=== PATIENT | female | born 1975 | race Two or more races ===

== ENCOUNTER 2016-10-13 00:30 | Emergency (ER) | payer MEDICAID ==
[2016-10-13 00:34] VITALS: BP 146/92; PULSE 100; RESP 16; TEMP 98.2; O2SAT 99
[2016-10-13] MEDS ORDERED: ZANT300T PO (00:47)
[2016-10-13] MEDS ORDERED: BUTA1CAP PO (00:47)
[2016-10-13] MEDS ORDERED: DIPH25CA PO ×2 (00:47→03:42)
[2016-10-13] MEDS ORDERED: AMIT150T PO (00:47)
[2016-10-13] MEDS ORDERED: SODIUM CHLOR 0.9% 1000 ML INJ 1,000 ML IV ONE (01:47)
[2016-10-13 01:48] LABS: BACTERIA, URINE RARE /hpf; BLOOD, URINE NEG (NEG); COMMENT (UR) CULT NOT INDICATED; CULTURE IF INDICATED CULT NOT INDICATED; GLUCOSE,URINE NEG (NEG); KETONE, URINE NEG (NEG); MUCUS URINE FEW /lpf (OCC); NITRITE,URINE NEG (NEG); PH, URINE 6.5 (5.0-8.5); SQUAMOUS EPITHELIAL CELL URINE 8 /hpf (0-5); URINE COLOR YELLOW (YELLW/STRAW)
[2016-10-13] MEDS ORDERED: KETOROLAC TROMETHAMINE 30 MG/ML (IVP) VIAL IVP ONE (02:00)
[2016-10-13] MEDS ORDERED: DEXAMETHASONE SOD PHOS 20 MG/5 ML VIAL IV PUSH ONE (02:00)
[2016-10-13] MEDS ORDERED: SODIUM CHLORIDE 0.9% FLUSH 10 ML FLUSH IVF PRN (02:00)
[2016-10-13] MEDS ORDERED: diphenhydrAMINE HCL 50 MG/ML VIAL IVP ONE (02:00)
[2016-10-13] MEDS ORDERED: METOCLOPRAMIDE HCL 10 MG/2 ML VIAL IVP ONE (02:00)
--- NOTE | 2016-10-13 02:11 | PD ---
HPI Chief Complaint: Cell Builder Problem/Complaint Time Seen by Provider: 01:22 Travel History International Travel<30 days: No Contact w/Intl Traveler<30days: No Traveled to known affect area: No History of Present Illness HPI Patient is a 41-year-old female who presents to emergency room with complaints of rash. Yesterday, she broke out in a diffuse rash all over her body. Patient denies any new lotions or detergents or perfumes, reports that she uses Dove to clean her body and uses unscented laundry detergents to clean her clothing. Patient reports that she can't seem to stop scratching her body. Patient reports that this has never happened the past, denies any allergies to food products. Reports no new body lotions/creams. Patient with no airway involvement - denies chest pain/sob. Patient also reports history of migraines , except that she takes Fioricet for her migraine symptoms, reports that she began to have a typical migraine this morning, reports that she still feels a pressure to the front of her head. Patient denies any fevers or chills, denies any neck pain, reports that her symptoms today are similar to her previous episodes of migraine headaches. She does see a neurologist in [place] where she is from, reports that she has not established care while in [place] yet. PFSH Past Medical History Depression: Yes Diminished Hearing: No GERD: Yes Headaches: Yes Tetanus Vaccination: Unknown ?: Not Past Surgical History Cholecystectomy: Yes Hysterectomy: Yes Social History Alcohol Use: No Tobacco Use: No Substance Use: No Allergies-Medications (Allergen,Severity, Reaction): Coded Allergies: No Known Allergies (Unverified , 10/13/16) Reported Meds & Prescriptions Reported Meds & Active Scripts Active Reported Diphenhydramine (Diphenhydramine HCl) 25 Mg Cap 100 Mg PO ONCE Amitriptyline (Amitriptyline HCl) 150 Mg Tab 150 Mg PO HS Zantac (Ranitidine HCl) 300 Mg Tab 300 Mg PO DAILY Fioricet (Jxlzfkqabr-Gziokesrlptdz-Dixcvzdg) 50-300-40 Mg Cap 1 Cap PO Q4H PRN Review of Systems General / Constitutional: No: Fever, Chills Eyes: No: Visual changes HENT: No: Headaches, Nosebleed, Neck Stiffness, Neck Pain Cardiovascular: No: Chest Pain or Discomfort Respiratory: No: Shortness of Breath Gastrointestinal: No: Abdominal Pain Genitourinary: No: Dysuria Musculoskeletal: No: Pain Skin: Positive Rash, Positive Itching, Positive Hives Neurologic: No: Weakness Psychiatric: No: Depression Endocrine: No: Polydipsia Hematologic/Lymphatic: No: Easy Bruising Physical Exam Narrative GENERAL: No acute distress, nontoxic SKIN: Focused skin assessment warm/dry. Patient with diffuse hives throughout her trunk and abdomen, no hives on extremities or back HEAD: Atraumatic. Normocephalic. EYES: Pupils equal and round. No scleral icterus. No injection or drainage. ENT: No nasal bleeding or discharge. Mucous membranes pink and moist. Airways are open and patent with no signs of swelling NECK: Trachea midline. No JVD. No meningeal signs, negative Kernig and Babinski sign. CARDIOVASCULAR: Regular rate and rhythm. No murmur appreciated. RESPIRATORY: No accessory muscle use. Clear to auscultation. Breath sounds equal bilaterally. GASTROINTESTINAL: Abdomen soft, non-tender, nondistended. Hepatic and splenic margins not palpable. MUSCULOSKELETAL: No obvious deformities. No clubbing. No cyanosis. No edema. NEUROLOGICAL: Awake and alert. No obvious cranial nerve deficits. Motor grossly within normal limits. Normal speech. Cranial nerves II-12 grossly intact with no neurological deficits. PSYCHIATRIC: Appropriate mood and affect; insight and judgment normal. Data Data Last Documented VS Vital Signs Date Time Temp Pulse Resp B/P (MAP) Pulse Ox O2 Delivery O2 Flow Rate FiO2 10/13/16 00:34 98.2 100 16 146/92 (110) 99 Orders Orders Urinalysis - C+S If Indicated (10/13/16 01:09) Ed Urine Pregnancytest Poc (10/13/16 01:09) Iv Access Insert/Monitor (10/13/16 01:47) Sodium Chloride 0.9% Flush (Ns Flush) (10/13/16 02:00) Ketorolac Inj (Toradol Inj) (10/13/16 02:00) Diphenhydramine Inj (Benadryl Inj) (10/13/16 02:00) Metoclopramide Inj (Reglan Inj) (10/13/16 02:00) Sodium Chlor 0.9% 1000 Ml Inj (Ns 1000 M (10/13/16 01:47) Dexamethasone Inj (Decadron Inj) (10/13/16 02:00) Labs Laboratory Tests Test 10/13/16 01:30 Urine Color YELLOW Urine Turbidity HAZY Urine pH 6.5 Urine Specific [place] 1.027 Urine Protein TRACE mg/dL Urine Glucose (UA) NEG mg/dL Urine Ketones NEG mg/dL Urine Occult Blood NEG Urine Nitrite NEG Urine Bilirubin NEG Urine Urobilinogen LESS THAN 2.0 MG/DL Urine Leukocyte Esterase SMALL Urine RBC 2 /hpf Urine WBC 4 /hpf Urine Squamous Epithelial Cells 8 /hpf Urine Bacteria RARE /hpf Urine Mucus FEW /lpf Microscopic Urinalysis Comment CULT NOT INDICATED MDM Medical Decision Making Medical Screen Exam Complete: Yes Emergency Medical Condition: Yes Interpretation(s) Vital Signs Date Time Temp Pulse Resp B/P (MAP) Pulse Ox O2 Delivery O2 Flow Rate FiO2 10/13/16 00:34 98.2 100 16 146/92 (110) 99 Differential Diagnosis Differential includes allergic reaction, migraine headache, ich though unlikely Narrative Course Patient is a 41-year-old female who presents to emergency with multiple complaints. Patient reports that she broke out in hives yesterday, patient reports that her scan is pruritic in nature, reports that she did take benadryl with no relief of symptoms. On evaluation, patient has diffuse hives to her trunk of her body as well as her abdomen. Patient with no airway involvement. Plan to administer Benadryl, steroids, Pepcid. Patient will need to follow-up with an gis software engineer to find out exactly what she is allergic to. Patient also with migraine headache, will give a dose of Toradol as patient reports typical migraine headache at this time. Patient with no neurological deficits, reports that she is being worked up for migraine headache. Will continue to monitor patient in the emergency room. Patient re-evaluated. Patient with near resolution of her symptoms. Reports that her migraine has resolved and pruritus has decreased. She will follow up with an gis software engineer as well as neurologist as outpatient. She will return to ER as needed. Patient thankful for care Diagnosis Primary Impression: Cephalgia Qualified Codes: R51 - Headache Additional Impression: Contact dermatitis Qualified Codes: L25.9 - Unspecified contact dermatitis, unspecified cause Patient Instructions: General Instructions Additional Instructions: Please follow up with your primary care doctor Please follow up with an gis software engineer for an allergy panel Take all medications as prescribed Return to ER if symptoms worsen or persist Return to ER as needed Med/Other Pt SpecificInfo: Prescription(s) given Scripts Famotidine (Pepcid) 20 Mg Tab 20 MG PO BID for 5 Days, #60 TAB 0 Refills Prov: Nikia Dukes DO 10/13/16 Diphenhydramine (Diphenhydramine) 25 Mg Cap 25 MG PO Q6H Y for ALLERGIES for 7 Days, CAP 0 Refills Prov: Nikia Dukes DO 10/13/16 Prednisone (Prednisone) 20 Mg Tab 20 MG PO BID for 5 Days, TAB 0 Refills Prov: Nikia Dukes DO 10/13/16 Disposition: 01 DISCHARGE HOME Condition: Stable Nikia Dukes DO Oct 13, 2016 02:11
[2016-10-13] MEDS ORDERED: FAMO1TAB37 PO (03:42)
[2016-10-13] MEDS ORDERED: PRED20 PO (03:42)
== END 2016-10-13 04:36 | disposition home or self-care (01) ==
LOC: NEPE 00:30
DX: L25.9 Unspecified contact dermatitis, unspecified cause (principal); R51 Headache
CPT/HCPCS: 81001; 84703; 96374; 96375; 99284; J1100; J1200; J1885; J2765; J7030

== ENCOUNTER 2017-01-02 00:48 | Emergency (ER) | payer MEDICAID ==
[~2017-01-02] VITALS: Ht 152.4 cm; Wt 66.0 kg
[~2017-01-02 00:48] MED LIST: AMIT150T PO; BUTA1CAP PO; DIPH25CA PO; FAMO1TAB37 PO; PRED20 PO; ZANT300T PO
[2017-01-02 00:50] VITALS: BP 165/85; PULSE 107; RESP 16; TEMP 98.5; O2SAT 100
[2017-01-02] MEDS ORDERED: KETOROLAC TROMETHAMINE 30 MG/ML (IVP) VIAL IV PUSH ONE (01:30)
[2017-01-02] MEDS ORDERED: methylPREDNISolone SOD SUCC 125 MG/2 ML VIAL IV PUSH ONE (01:30)
[2017-01-02] MEDS ORDERED: ONDANSETRON HCL 4 MG/2 ML VIAL IV PUSH ONE (01:30)
[2017-01-02] MEDS ORDERED: diphenhydrAMINE HCL 50 MG/ML VIAL IV PUSH ONE (01:30)
[2017-01-02] MEDS ORDERED: PRED20 PO (01:40)
[2017-01-02] MEDS ORDERED: ZOFR4TAB3 SL (01:40)
[2017-01-02] MEDS ORDERED: ZANT300T PO (01:40)
[2017-01-02] MEDS ORDERED: ZYRTEC PO (01:40)
--- NOTE | 2017-01-02 01:40 | PD ---
HPI Chief Complaint: Headache Time Seen by Provider: 01:21 Travel History International Travel<30 days: No Contact w/Intl Traveler<30days: No Traveled to known affect area: No History of Present Illness HPI 41-year-old female complaining headache and itching rash. Patient states that she had itching rash the past 2 days. Patient does not know up exposure. Patient denies any problem with swallowing or shortness of breath. Patient has history of recurrent migraine headache. Patient states that headache started this morning. Patient states the headache is throbbing headache diffuse over the head. Patient denies any visual change. Patient complains of photophobia. Patient complains of nausea with the headache. Patient denies any neck pain. Patient denies any chest pain or shortness of breath. Patient denies abdominal pain. Patient denies any focal weakness or numbness of extremity. Patient states the headache; headache she had in the past. Patient denies any recent head injury. Patient denies any fever chills. Patient states that she took Fioricet without much relief of the headache. PFSH Past Medical History Depression: Yes Diminished Hearing: No GERD: Yes Headaches: Yes ?: Not LMP: N/A Past Surgical History Cholecystectomy: Yes Hysterectomy: Yes Social History Alcohol Use: Yes (RARE) Tobacco Use: No Substance Use: No Allergies-Medications (Allergen,Severity, Reaction): Coded Allergies: No Known Allergies (Unverified Adverse Reaction, Unknown, 01/02/17) Reported Meds & Prescriptions Reported Meds & Active Scripts Active Pepcid (Famotidine) 20 Mg Tab 20 Mg PO BID 5 Days Diphenhydramine (Diphenhydramine HCl) 25 Mg Cap 25 Mg PO Q6H PRN 7 Days Prednisone 20 Mg Tab 20 Mg PO BID 5 Days Reported Diphenhydramine (Diphenhydramine HCl) 25 Mg Cap 100 Mg PO ONCE Amitriptyline (Amitriptyline HCl) 150 Mg Tab 150 Mg PO HS Zantac (Ranitidine HCl) 300 Mg Tab 300 Mg PO DAILY Fioricet (Qacfmsvvsr-Zsqfliitjmnhs-Pvfpuimh) 50-300-40 Mg Cap 1 Cap PO Q4H PRN Review of Systems General / Constitutional: No: Fever Eyes: Positive: Photophobia, No: Visual changes HENT: Positive: Headaches Cardiovascular: No: Chest Pain or Discomfort Respiratory: No: Shortness of Breath Gastrointestinal: Positive: Nausea, No: Abdominal Pain Genitourinary: No: Dysuria Musculoskeletal: No: Pain Skin: Positive Rash, Positive Itching Neurologic: No: Weakness Psychiatric: No: Depression Endocrine: No: Polydipsia Hematologic/Lymphatic: No: Easy Bruising Physical Exam Narrative GENERAL: Well-nourished, well-developed patient. SKIN: Focused skin assessment warm/dry. Patient has hives over the face, trunk and extremity. HEAD: Normocephalic. EYES: No scleral icterus. No injection or drainage. Pupil 4 mm equal reactive. NECK: Supple, trachea midline. No JVD or lymphadenopathy. No meningismus CARDIOVASCULAR: Regular rate and rhythm without murmurs, gallops, or rubs. RESPIRATORY: Breath sounds equal bilaterally. No accessory muscle use. GASTROINTESTINAL: Abdomen soft, non-tender, nondistended. MUSCULOSKELETAL: No cyanosis, or edema. BACK: Nontender without obvious deformity. No CVA tenderness. Neurologic exam normal. Data Data Last Documented VS Vital Signs Date Time Temp Pulse Resp B/P (MAP) Pulse Ox O2 Delivery O2 Flow Rate FiO2 01/02/17 01:18 16 01/02/17 00:50 98.5 107 165/85 (111) 100 Room Air Orders Orders Iv Access Insert/Monitor (01/02/17 01:27) Ketorolac Inj (Toradol Inj) (01/02/17 01:30) Methylprednisolone So Succ Inj (Solumedr (01/02/17 01:30) Ondansetron Inj (Zofran Inj) (01/02/17 01:30) Diphenhydramine Inj (Benadryl Inj) (01/02/17 01:30) MDM Medical Decision Making Medical Screen Exam Complete: Yes Emergency Medical Condition: Yes Differential Diagnosis Differential diagnosis including allergic reaction, anaphylactic reaction, migraine headache, tension headache, cluster headache. Narrative Course 41-year-old female with itching rash and migraine headache. Toradol 30 mg IV. Benadryl 50 mg IV. Zofran 4 mg IV. Solu-Medrol 125 mg IV. Diagnosis Primary Impression: Cephalgia Qualified Codes: R51 - Headache Additional Impression: Allergic reaction Qualified Codes: T78.40XA - Allergy, unspecified, initial encounter Patient Instructions: General Instructions Additional Instructions: Continue with Fioricet as directed. Prednisone and Benadryl as directed. Follow-up with personal physician. Return if worse. Follow-up with clerical car checker or psychic reader for skin rash. Med/Other Pt SpecificInfo: Prescription(s) given Scripts Ondansetron Odt (Zofran Odt) 4 Mg Tab 4 MG SL Q6HR Y for Nausea/Vomiting, #10 TAB 0 Refills Prov: Qamar Burk MD 01/02/17 [[facility]] No Conflict Check 1 TAB PO DAILY, #14 Prov: Qamar Burk MD 01/02/17 Prednisone (Prednisone) 20 Mg Tab 20 MG PO BID, #10 TAB 0 Refills Prov: Qamar Burk MD 01/02/17 Ranitidine (Zantac) 300 Mg Tab 300 MG PO DAILY, #14 TAB 0 Refills Prov: Qamar Burk MD 01/02/17 Disposition: 01 DISCHARGE HOME Condition: Stable Qamar Burk MD Jan 02, 2017 01:40
== END 2017-01-02 04:34 | disposition home or self-care (01) ==
LOC: NEPE 00:48
DX: T78.40XA Allergy, unspecified, initial encounter (principal); R51 Headache; L29.9 Pruritus, unspecified; R21 Rash and other nonspecific skin eruption; F32.9 Major depressive disorder, single episode, unspecified; K21.9 Gastro-esophageal reflux disease without esophagitis; Z79.899 Other long term (current) drug therapy
CPT/HCPCS: 96374; 96375; 99284; J1200; J1885; J2405; J2930

== ENCOUNTER 2017-01-27 13:06 | Observation (INO) | payer MEDICAID ==
[~2017-01-27 13:06] MED LIST changes: +ZOFR4TAB3 SL; +ZYRTEC PO
[2017-01-27] MEDS ORDERED: IOHEXOL 350 MG/ML 10 ML VIAL (for RAD DIAG) IVCONTRAST ONE (13:07)
[2017-01-27 13:09] VITALS: BP 138/89; PULSE 133; RESP 22; TEMP 98.6; O2SAT 96
[2017-01-27] MEDS ORDERED: SODIUM CHLOR 0.9% 1000 ML INJ 1,000 ML IV SCH ×2 (13:14→13:30)
[2017-01-27] MEDS ORDERED: SODIUM CHLORIDE 0.9% FLUSH 10 ML FLUSH IV FLUSH PRN (13:15)
[2017-01-27 13:25] VITALS: RESP 18; O2SAT 98
[2017-01-27] MEDS ORDERED: FAMOTIDINE 20 MG/2 ML VIAL IV PUSH ONE (13:30)
[2017-01-27] MEDS ORDERED: LIDOCAINE VISCOUS 2% SOLN 15 ML UDC PO ONE (13:30)
[2017-01-27] MEDS ORDERED: ALUMINUM/MAGNESIUM/SIMETH 30 ML CUP PO ONE (13:30)
[2017-01-27] MEDS ORDERED: MORPHINE SULFATE 4 MG/ML INJ IV PUSH ONE ×2 (13:30→16:45)
[2017-01-27] MEDS ORDERED: ONDANSETRON HCL 4 MG/2 ML VIAL IVP ONE (13:30)
--- NOTE | 2017-01-27 13:39 | PD ---
HPI Chief Complaint: GI Complaint Time Seen by Provider: 13:14 Travel History International Travel<30 days: No Contact w/Intl Traveler<30days: No Traveled to known affect area: No History of Present Illness HPI Patient is a 41-year-old female with history of gastritis, cholecystectomy, hysterectomy, presents to emergency room with complaints of abdominal pain with nausea and vomiting for the past 2 days. Patient reports that for the past 2 days, she has been unable to eat or drink anything, reports pain to her upper abdomen with associated nausea and vomiting. Patient reports that there is no one sick at home besides her, reports no recent travels or sick contacts. Patient denies any constipation or diarrhea. Reports pain to her upper abdomen as moderate in nature. Patient denies any chest pain or shortness of breath, denies any flank pain, denies dysuria, denies urinary urgency or frequency. PFSH Past Medical History Depression: Yes Diminished Hearing: No Gastrointestinal Disorders: Yes GERD: Yes Headaches: Yes Neurologic: Yes Tetanus Vaccination: > 5 Years Influenza Vaccination: No ?: Not : 3 Para: 3 Past Surgical History Cholecystectomy: Yes Hysterectomy: Yes Social History Alcohol Use: Yes (RARE) Tobacco Use: No Substance Use: No Allergies-Medications (Allergen,Severity, Reaction): Coded Allergies: No Known Allergies (Unverified Adverse Reaction, Unknown, 01/02/17) Reported Meds & Prescriptions Reported Meds & Active Scripts Active Reported Zantac (Ranitidine HCl) 300 Mg Tab 300 Mg PO DAILY Review of Systems General / Constitutional: No: Fever, Chills Eyes: No: Visual changes HENT: No: Headaches Cardiovascular: No: Chest Pain or Discomfort, Palpitations, Irregular Rhythm Respiratory: No: Cough, Shortness of Breath Gastrointestinal: Positive: Nausea, Vomiting, Abdominal Pain Genitourinary: No: Dysuria Musculoskeletal: No: Pain Skin: No Rash Neurologic: No: Weakness Psychiatric: No: Depression Endocrine: No: Polydipsia Hematologic/Lymphatic: No: Easy Bruising Physical Exam Narrative GENERAL: Moderate distress SKIN: Focused skin assessment warm/dry. HEAD: Atraumatic. Normocephalic. EYES: Pupils equal and round. No scleral icterus. No injection or drainage. ENT: No nasal bleeding or discharge. Mucous membranes pink and moist. NECK: Trachea midline. No JVD. CARDIOVASCULAR: Regular rate and rhythm. No murmur appreciated. RESPIRATORY: No accessory muscle use. Clear to auscultation. Breath sounds equal bilaterally. GASTROINTESTINAL: Abdomen soft, increased tenderness to the upper abdomen with guarding on exam, nondistended. Hepatic and splenic margins not palpable. MUSCULOSKELETAL: No obvious deformities. No clubbing. No cyanosis. No edema. NEUROLOGICAL: Awake and alert. No obvious cranial nerve deficits. Motor grossly within normal limits. Normal speech. PSYCHIATRIC: Appropriate mood and affect; insight and judgment normal. Data Data Last Documented VS Vital Signs Date Time Temp Pulse Resp B/P (MAP) Pulse Ox O2 Delivery O2 Flow Rate FiO2 01/27/17 16:46 16 01/27/17 15:00 97.8 106 124/81 (95) 99 Room Air Orders Orders Complete Blood Count With Diff (01/27/17 13:14) Comprehensive Metabolic Panel (01/27/17 13:14) Lipase (01/27/17 13:14) Prothrombin Time / Inr (Pt) (01/27/17 13:14) Act Partial Throm Time (Ptt) (01/27/17 13:14) Urinalysis - C+S If Indicated (01/27/17 13:14) Iv Access Insert/Monitor (01/27/17 13:14) Ecg Monitoring (01/27/17 13:14) Oximetry (01/27/17 13:14) NPO (01/27/17 13:14) Sodium Chlor 0.9% 1000 Ml Inj (Ns 1000 M (01/27/17 13:14) Sodium Chloride 0.9% Flush (Ns Flush) (01/27/17 13:15) Ct Abd/Pel W Iv Contrast(Rout) (01/27/17 13:30) Morphine Inj (Morphine Inj) (01/27/17 13:30) Ondansetron Inj (Zofran Inj) (01/27/17 13:30) Sodium Chlor 0.9% 1000 Ml Inj (Ns 1000 M (01/27/17 13:30) Famotidine Inj (Pepcid Inj) (01/27/17 13:30) Al-Mag Hy-Si 40-40-4 Mg/Ml Liq (Mag-Al P (01/27/17 13:30) Lidocaine 2% Viscous (Xylocaine 2% Visco (01/27/17 13:30) Iohexol 350 Inj (Omnipaque 350 Inj) (01/27/17 13:07) Morphine Inj (Morphine Inj) (01/27/17 16:45) Labs Laboratory Tests Test 01/27/17 13:48 White Blood Count 11.3 TH/MM3 Red Blood Count 4.79 MIL/MM3 Hemoglobin 14.2 GM/DL Hematocrit 42.4 % Mean Corpuscular Volume 88.6 FL Mean Corpuscular Hemoglobin 29.7 PG Mean Corpuscular Hemoglobin Concent 33.6 % Red Cell Distribution Width 13.5 % Platelet Count 311 TH/MM3 Mean Platelet Volume 9.2 FL Neutrophils (%) (Auto) 85.6 % Lymphocytes (%) (Auto) 7.7 % Monocytes (%) (Auto) 6.3 % Eosinophils (%) (Auto) 0.1 % Basophils (%) (Auto) 0.3 % Neutrophils # (Auto) 9.7 TH/MM3 Lymphocytes # (Auto) 0.9 TH/MM3 Monocytes # (Auto) 0.7 TH/MM3 Eosinophils # (Auto) 0.0 TH/MM3 Basophils # (Auto) 0.0 TH/MM3 CBC Comment AUTO DIFF Differential Comment AUTO DIFF CONFIRMED Prothrombin Time 10.4 SEC Prothromb Time International Ratio 1.0 RATIO Activated Partial Thromboplast Time 19.6 SEC Blood Urea Nitrogen 7 MG/DL Creatinine 0.69 MG/DL Random Glucose 176 MG/DL Total Protein 8.6 GM/DL Albumin 4.2 GM/DL Calcium Level 9.3 MG/DL Alkaline Phosphatase 147 U/L Aspartate Amino Transf (AST/SGOT) 107 U/L Alanine Aminotransferase (ALT/SGPT) 534 U/L Total Bilirubin 0.6 MG/DL Sodium Level 135 MEQ/L Potassium Level 3.8 MEQ/L Chloride Level 104 MEQ/L Carbon Dioxide Level 22.8 MEQ/L Anion Gap 8 MEQ/L Estimat Glomerular Filtration Rate 94 ML/MIN Lipase 119 U/L MDM Medical Decision Making Medical Screen Exam Complete: Yes Emergency Medical Condition: Yes Medical Record Reviewed: Yes Interpretation(s) Vital Signs Date Time Temp Pulse Resp B/P (MAP) Pulse Ox O2 Delivery O2 Flow Rate FiO2 01/27/17 13:25 18 98 Room Air 01/27/17 13:09 98.6 133 22 138/89 (105) 96 Differential Diagnosis Gastritis, gastroenteritis, small bowel obstruction, electrolyte abnormality Narrative Course Patient is a 41-year-old female who presents to emergency room with complaints of nausea, vomiting and abdominal pain which has been ongoing for the past 2 days. Patient does have history of gastritis, history of cholecystitis, reports no sick contacts at home, no recent travels. Patient reports that she has been uncomfortable and unable to tolerate any fluids or liquids. During the course of the patients emergency department visit, the patients history, examination, and differential diagnosis were reviewed with the patient. The patient was placed on a monitoring manager with oximetry and frequent blood pressure monitoring. The patient had an IV access obtained and blood work sent for analysis. The patient was initially provided IVF, IV pepcid, IV Zofran and IV morphine The patients laboratory studies were reviewed and remarkable for: Laboratory Tests Test 01/27/17 13:48 White Blood Count 11.3 TH/MM3 (4.0-11.0) Red Blood Count 4.79 MIL/MM3 (4.00-5.30) Hemoglobin 14.2 GM/DL (11.6-15.3) Hematocrit 42.4 % (35.0-46.0) Mean Corpuscular Volume 88.6 FL (80.0-100.0) Mean Corpuscular Hemoglobin 29.7 PG (27.0-34.0) Mean Corpuscular Hemoglobin Concent 33.6 % (32.0-36.0) Red Cell Distribution Width 13.5 % (11.6-17.2) Platelet Count 311 TH/MM3 (150-450) Mean Platelet Volume 9.2 FL (7.0-11.0) Neutrophils (%) (Auto) 85.6 % (16.0-70.0) Lymphocytes (%) (Auto) 7.7 % (9.0-44.0) Monocytes (%) (Auto) 6.3 % (0.0-8.0) Eosinophils (%) (Auto) 0.1 % (0.0-4.0) Basophils (%) (Auto) 0.3 % (0.0-2.0) Neutrophils # (Auto) 9.7 TH/MM3 (1.8-7.7) Lymphocytes # (Auto) 0.9 TH/MM3 (1.0-4.8) Monocytes # (Auto) 0.7 TH/MM3 (0-0.9) Eosinophils # (Auto) 0.0 TH/MM3 (0-0.4) Basophils # (Auto) 0.0 TH/MM3 (0-0.2) CBC Comment AUTO DIFF Differential Comment AUTO DIFF CONFIRMED Prothrombin Time 10.4 SEC (9.8-11.6) Prothromb Time International Ratio 1.0 RATIO Activated Partial Thromboplast Time 19.6 SEC (24.3-30.1) Blood Urea Nitrogen 7 MG/DL (7-18) Creatinine 0.69 MG/DL (0.50-1.00) Random Glucose 176 MG/DL (74-106) Total Protein 8.6 GM/DL (6.4-8.2) Albumin 4.2 GM/DL (3.4-5.0) Calcium Level 9.3 MG/DL (8.5-10.1) Alkaline Phosphatase 147 U/L (45-117) Aspartate Amino Transf (AST/SGOT) 107 U/L (15-37) Alanine Aminotransferase (ALT/SGPT) 534 U/L (10-53) Total Bilirubin 0.6 MG/DL (0.2-1.0) Sodium Level 135 MEQ/L (136-145) Potassium Level 3.8 MEQ/L (3.5-5.1) Chloride Level 104 MEQ/L (98-107) Carbon Dioxide Level 22.8 MEQ/L (21.0-32.0) Anion Gap 8 MEQ/L (5-15) Estimat Glomerular Filtration Rate 94 ML/MIN (>89) Lipase 119 U/L (73-393) Radiology studies were reviewed and remarkable for: wbc 11.3, hgb 14.2, hct 42.4, platelets 311 Sodium 135, potassium 3.8, BUN 7, creatinine 0.69, glucose 176 AST 107 ALT 534 Alkaline phosphatase [address] of abdomen and pelvis: CONCLUSION: 1. I do not see a etiology for the abdominal pain 2. 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 Patient re-evaluated, patient crying in pain. Plan to obs for intractable pain with transaminitis. case reviewed with dr cruz who accepts pt to service Diagnosis Primary Impression: Abdominal pain Additional Impression: Transaminitis Admitting Information Admitting Physician Requests: Observation Nikia Dukes DO Jan 27, 2017 13:38
[2017-01-27 14:19] LABS: AUTOMATED NEUTROPHIL # 9.7 TH/MM3 (1.8-7.7); BASOPHIL % 0.3 % (0.0-2.0); EOSINOPHIL % 0.1 % (0.0-4.0); HEMATOCRIT 42.4 % (35.0-46.0); LYMPH % 7.7 % (9.0-44.0); LYMPHOCYTE # 0.9 TH/MM3 (1.0-4.8); MEAN CELL VOLUME 88.6 FL (80.0-100.0); MEAN CORPUSCULAR HEMOGLOBIN 29.7 PG (27.0-34.0); MEAN CORPUSCULAR HGB CONC 33.6 % (32.0-36.0); MONO % 6.3 % (0.0-8.0); NEUT % 85.6 % (16.0-70.0); PLATELET COUNT 311 TH/MM3 (150-450); RED BLOOD COUNT 4.79 MIL/MM3 (4.00-5.30); RED CELL DISTRIBUTION WIDTH 13.5 % (11.6-17.2); WHITE BLOOD COUNT 11.3 TH/MM3 (4.0-11.0)
[2017-01-27 14:24] LABS: HEMO FLAGS AUTO DIFF
[2017-01-27 14:33] LABS: ALT (GPT) 534 U/L (10-53)
[2017-01-27 14:34] LABS: ANION GAP 8 MEQ/L (5-15); APTT (PATIENT) 19.6 SEC (24.3-30.1); AST (GOT) 107 U/L (15-37); BICARBONATE 22.8 MEQ/L (21.0-32.0); BLOOD UREA NITROGEN 7 MG/DL (7-18); CHLORIDE 104 MEQ/L (98-107); GLOMERULAR FILTRATION RATE 94 ML/MIN (>89); POTASSIUM 3.8 MEQ/L (3.5-5.1); PROTHROMBIN TIME - PATIENT 10.4 SEC (9.8-11.6); SODIUM (NA) 135 MEQ/L (136-145)
[2017-01-27 14:35] LABS: ALKALINE PHOSPHATASE 147 U/L (45-117); TOTAL BILIRUBIN ADULT 0.6 MG/DL (0.2-1.0)
[2017-01-27 14:48] LABS: SCAN/DIFF AUTO DIFF CONFIRMED
[2017-01-27 15:00] VITALS: BP 124/81; PULSE 106; RESP 17; TEMP 97.8; O2SAT 99
--- NOTE | 2017-01-27 16:37 | RADRPT ---
EXAM DATE/TIME: 01/27/2017 16:18 [facility] COMPARISON: No previous studies available for comparison. INDICATIONS : Diffuse abdomen pain in epigastric region for two days. IV CONTRAST: 70 cc Omnipaque 350 (iohexol) IV ORAL CONTRAST: No oral contrast ingested. RADIATION DOSE: 6.74 CTDIvol (mGy) MEDICAL HISTORY : Gastritis. SURGICAL HISTORY : Cholecystectomy. Hysterectomy.Discectomy, cervical. ENCOUNTER: Initial ACUITY: 2 days PAIN SCALE: 10/10 LOCATION: Bilateral upper quadrant TECHNIQUE: Volumetric scanning of the abdomen and pelvis was performed. Using automated exposure control and ad justment of the mA and/or kV according to patient size, radiation dose was kept as low as reasonably achievable to obtain optimal diagnostic quality images. DICOM format image data is available electro nically for review and comparison. FINDINGS: Lung base is are clear. The liver is unremarkable. Small appearing splenic cyst is evident.. Surgical clips gallbladder fos sa The pancreas and adrenal glands appear normal There is no free air There is no adenopathy There is symmetrical renal function without renal mass or stone There is mild prominence of the uterus suggesting fibroid uterus. Pelvic contents are otherwise unremarkable. There is no ascites or adenopathy. Degenerative changes are seen in the lumbar spine and both SI joints. CONCLUSION: 1. I do not see a etiology for the abdominal pain 2. 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 Robbin Crane MD FACR on January 27, 2017 at 16:34 Board Certified Radiologist. This report was verified electronically.
[2017-01-27] MEDS ORDERED: ONDANSETRON HCL 4 MG/2 ML VIAL IV PUSH PRN (17:30)
[2017-01-27] MEDS: PANTOPRAZOLE SODIUM 40 MG VIAL IV PUSH SCH (17:38)
[2017-01-27] MEDS: SODIUM CHLOR 0.9% 1000 ML INJ 1,000 ML IV SCH (17:38)
--- NOTE | 2017-01-27 17:38 | HHI.HP ---
[facility] Service [facility] Primary Care Physician No Primary Care Physician Admission Diagnosis Intractable abdominal pain, transaminitis Diagnoses: (1) Abdominal pain Diagnosis: Principal (2) Transaminitis Diagnosis: Principal Chief Complaint: abdominal pain Travel History International Travel<30 Days: No Contact w/Intl Traveler <30 Da: No Traveled to Known Affected Are: No History of Present Illness patient is a 41 y/o female with history of gastritis and pancreatitis who presented to ER with abdominal pain. she says that the pain started two days ago. pain is epigastric with no radiation. pain was initially moderate in intensity but it gradually got worse to the extent that she decided to come to ER. she says that she tried some zantac with no relief. she had some nausea and emesis earlier. she denies any change in bowel movement. she had some chills and questionable fever at home. abdominal pain didn't improve despite the IV Morphine that she received in ER earlier.she says that she took 2-3 tylenol for headache the past couple of days.she had an endoscopy about three years ago and she was found to have gastritis at the time. Review of Systems Constitutional: COMPLAINS OF: Chills, DENIES: Fever, Weight loss, Night Sweats Eyes: DENIES: Blurred vision, Diplopia, Vision loss, Double Vision Ears, nose, mouth, throat: DENIES: Tinnitus, Vertigo, Throat pain, Epistaxis Respiratory: DENIES: Apneas, Cough, Snoring, Wheezing, Hemoptysis, Sputum production, Shortness of breath Cardiovascular: DENIES: Chest pain, Palpitations, Syncope, Dyspnea on Exertion , PND, Lower Extremity Edema, Orthopnea, Claudication Gastrointestinal: COMPLAINS OF: Abdominal pain, Nausea, Vomiting, DENIES: Black stools, Bloody stools, Constipation, Diarrhea, Difficulty Swallowing, Anorexia Genitourinary: DENIES: Urinary frequency, Urgency, Hematuria, Dysuria Musculoskeletal: DENIES: Joint pain, Muscle aches, Stiffness, Joint Swelling Integumentary: DENIES: Rash Neurologic: DENIES: Abnormal gait, Headache, Localized weakness, Paresthesias, Seizures, Speech Problems, Tremor, Poor Balance Psychiatric: DENIES: Anxiety, Confusion, Mood changes, Depression, Hallucinations, Agitation, Suicidal Ideation, Homicidal Ideation, Delusions Past Family Social History Past Medical History gastritis PUD pancreatitis Past Surgical History cholecystectomy neck surgery hysterectomy Reported Medications none reported. Allergies: Coded Allergies: No Known Allergies (Unverified Adverse Reaction, Unknown, 01/02/17) Active Ordered Medications Current Medications Sodium Chloride 1,000 ml @ 1,000 mls/hr Q1H IV Last administered on 01/27/17 13:46; Start 01/27/17 at 13:14; Stop 01/27/17 at 14:13; Status DC Sodium Chloride (NS Flush) 2 ml UNSCH PRN IV FLUSH FLUSH AFTER USING IV ACCESS Last administered on 01/27/17 13:47; Start 01/27/17 at 13:15 Morphine Sulfate (Morphine Inj) 4 mg ONCE ONCE IV PUSH Last administered on 13:47; Start 01/27/17 at 13:30; Stop 01/27/17 at 13:32; Status DC Ondansetron HCl (Zofran Inj) 4 mg ONCE ONCE IVP Last administered on 13:47; Start 01/27/17 at 13:30; Stop 01/27/17 at 13:32; Status DC Sodium Chloride 1,000 ml @ 1,000 mls/hr Q1H IV Last administered on 01/27/17 13:46; Start 01/27/17 at 13:30; Stop 01/27/17 at 14:29; Status DC Famotidine (Pepcid Inj) 20 mg ONCE ONCE IV PUSH Last administered on 13:46; Start 01/27/17 at 13:30; Stop 01/27/17 at 13:32; Status DC Al Hydrox/Mg Hydrox/Simethicone (Mag-Al Plus Susp Liq) 30 ml ONCE ONCE PO Last administered on 01/27/17 13:47; Start 01/27/17 at 13:30; Stop 01/27/17 at 13:32; Status DC Lidocaine HCl (Xylocaine 2% Viscous) 15 ml ONCE ONCE PO Last administered on 01/27/17 13:47; Start 01/27/17 at 13:30; Stop 01/27/17 at 13:32; Status DC Iohexol (Omnipaque 350 Inj) 70 ml STK-MED ONCE IVCONTRAST Last administered on 01/27/17 13:07; Start 01/27/17 at 13:07; Stop 01/27/17 at 16:22; Status DC Morphine Sulfate (Morphine Inj) 4 mg ONCE ONCE IV PUSH Last administered on 16:41; Start 01/27/17 at 16:45; Stop 01/27/17 at 16:46; Status DC Pantoprazole Sodium (Protonix Inj) 40 mg Q24H IV PUSH ; Start 01/27/17 at 17:30 ; Status UNV Sodium Chloride 1,000 ml @ 100 mls/hr Q10H IV ; Start 01/27/17 at 17:30; Status UNV Morphine Sulfate (Morphine Inj) 2 mg Q4HR PRN IV PUSH PAIN 1-10; Start at 17:30; Status UNV Ondansetron HCl (Zofran Inj) 4 mg Q8HR PRN IV PUSH NAUSEA; Start 01/27/17 at 17 :30; Status UNV Family History gastric cancer in mother. Social History denies smoking, drinking or illicit drug abuse. Physical Exam Vital Signs Vital Signs Date Time Temp Pulse Resp B/P (MAP) Pulse Ox O2 Delivery O2 Flow Rate FiO2 01/27/17 16:46 16 01/27/17 15:00 97.8 106 17 124/81 (95) 99 Room Air 01/27/17 13:52 16 01/27/17 13:25 18 98 Room Air 01/27/17 13:24 18 01/27/17 13:09 98.6 133 22 138/89 (105) 96 Physical Exam GENERAL: This is a well-nourished, well-developed patient, in no apparent distress. SKIN: No rashes, ecchymoses or lesions. Cool and dry. HEAD: Atraumatic. Normocephalic. No temporal or scalp tenderness. EYES: Pupils equal round and reactive. Extraocular motions intact. No scleral icterus. No injection or drainage. ENT: Nose without bleeding, purulent drainage or septal hematoma. Throat without erythema, tonsillar hypertrophy or exudate. Uvula midline. Airway patent. NECK: Trachea midline. No JVD or lymphadenopathy. Supple, nontender, no meningeal signs. CARDIOVASCULAR: Regular rate and rhythm without murmurs, gallops, or rubs. RESPIRATORY: Clear to auscultation. Breath sounds equal bilaterally. No wheezes , rales, or rhonchi. GASTROINTESTINAL: Abdomen soft, with epigastric tenderness, nondistended. No hepato-splenomegaly, or palpable masses. No guarding. MUSCULOSKELETAL: Extremities without clubbing, cyanosis, or edema. No joint tenderness, effusion, or edema noted. No calf tenderness. Negative Homans sign bilaterally. NEUROLOGICAL: Awake and alert. Cranial nerves II through XII intact. Motor and sensory grossly within normal limits. Five out of 5 muscle strength in all muscle groups. Normal speech. Laboratory Laboratory Tests Test 01/27/17 13:48 White Blood Count 11.3 Red Blood Count 4.79 Hemoglobin 14.2 Hematocrit 42.4 Mean Corpuscular Volume 88.6 Mean Corpuscular Hemoglobin 29.7 Mean Corpuscular Hemoglobin Concent 33.6 Red Cell Distribution Width 13.5 Platelet Count 311 Mean Platelet Volume 9.2 Neutrophils (%) (Auto) 85.6 Lymphocytes (%) (Auto) 7.7 Monocytes (%) (Auto) 6.3 Eosinophils (%) (Auto) 0.1 Basophils (%) (Auto) 0.3 Neutrophils # (Auto) 9.7 Lymphocytes # (Auto) 0.9 Monocytes # (Auto) 0.7 Eosinophils # (Auto) 0.0 Basophils # (Auto) 0.0 CBC Comment AUTO DIFF Differential Comment AUTO DIFF CONFIRMED Prothrombin Time 10.4 Prothromb Time International Ratio 1.0 Activated Partial Thromboplast Time 19.6 Blood Urea Nitrogen 7 Creatinine 0.69 Random Glucose 176 Total Protein 8.6 Albumin 4.2 Calcium Level 9.3 Alkaline Phosphatase 147 Aspartate Amino Transf (AST/SGOT) 107 Alanine Aminotransferase (ALT/SGPT) 534 Total Bilirubin 0.6 Sodium Level 135 Potassium Level 3.8 Chloride Level 104 Carbon Dioxide Level 22.8 Anion Gap 8 Estimat Glomerular Filtration Rate 94 Lipase 119 Result Diagram: 01/27/17 1348 01/27/17 1348 Imaging Last Impressions Abdomen/Pelvis CT 01/27/17 1330 Signed Impressions: Service Date/Time: Friday, January 27, 2017 16:18 - CONCLUSION: 1. I do not see a etiology for the abdominal pain 2. 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 Robbin Crane MD FACR Caprini VTE Risk Assessment Caprini VTE Risk Assessment: No/Low Risk (score <= 1) Caprini Risk Assessment Model Point Value = 1 Point Value = 2 Point Value = 3 Point Value = 5 Age 41-60 Minor surgery BMI > 25 kg/m2 Swollen legs Varicose veins or History of unexplained or recurrent spontaneous Oral contraceptives or hormone replacement Sepsis (< 1 month) Serious lung disease, including pneumonia (< 1 month) Abnormal pulmonary function Acute myocardial infarction Congestive heart failure (< 1 month) History of inflammatory bowel disease Medical patient at bed rest Age 61-74 Arthroscopic surgery Major open surgery (> 45 min) Laparoscopic surgery (> 45 min) Malignancy Confined to bed (> 72 hours) Immobilizing plaster cast Central venous access Age >= 75 History of VTE Family history of VTE Factor V Leiden Prothrombin [id number] Lupus anticoagulant Anticardiolipin antibodies Elevated serum homocysteine Heparin-induced thrombocytopenia Other congenital or acquired thrombophilia Stroke (< 1 month) Elective arthroplasty Hip, pelvis, or leg fracture Acute spinal cord injury (< 1 month) Prophylaxis Regimen Total Risk Factor Score Risk Level Prophylaxis Regimen 0-1 Low Early ambulation 2 Moderate Order ONE of the following: *Sequential Compression Device (SCD) *Heparin 5000 units SQ BID 3-4 Higher Order ONE of the following medications: *Heparin 5000 units SQ TID *Enoxaparin/Lovenox 40 mg SQ daily (WT < 150 kg, CrCl > 30 mL/min) *Enoxaparin/Lovenox 30 mg SQ daily (WT < 150 kg, CrCl > 10-29 mL/min) *Enoxaparin/Lovenox 30 mg SQ BID (WT < 150 kg, CrCl > 30 mL/min) AND/OR *Sequential Compression Device (SCD) 5 or more Highest Order ONE of the following medications: *Heparin 5000 units SQ TID (Preferred with Epidurals) *Enoxaparin/Lovenox 40 mg SQ daily (WT < 150 kg, CrCl > 30 mL/min) *Enoxaparin/Lovenox 30 mg SQ daily (WT < 150 kg, CrCl > 10-29 mL/min) *Enoxaparin/Lovenox 30 mg SQ BID (WT < 150 kg, CrCl > 30 mL/min) AND *Sequential Compression Device (SCD) Assessment and Plan Assessment and Plan A/P - intractable abdominal pain with elevated LFT's keep NPO for now and continue with supportive care with IV fluid, antiemetics and pain control as needed. start on IV Protonix. check hepatitis panel, tylenol level, liver sonogram and consult GI. will repeat LFT's tomorrow. Discussed Condition With ER physician and the patient. Problem Qualifiers (1) Abdominal pain: Qualified Codes: R10.13 - Epigastric pain Sonu Estevez MD Jan 27, 2017 17:38
--- NOTE | 2017-01-27 18:20 | RADRPT ---
EXAM DATE/TIME: 01/27/2017 17:40 CORRECTION Corrected on: January 29, 2017; [facility] COMPARISON: CT ABDOMEN & PELVIS W CONTRAST, January 27, 2017, 16:18. INDICATIONS : Increased lab values. MEDICAL HISTORY : Gastroesophageal reflux disease. Glasses. Headache. Depression. SURGICAL HISTORY : Cholecystectomy. Hysterectomy. C- spine surgery. ENCOUNTER: Initial ACUITY: 2 days PAIN SCORE: 9/10 LOCATION: Bilateral upper quadrant MEASUREMENTS: LIVER: 12.9 cm length COMMON DUCT: 8 mm RIGHT KIDNEY: 10.1 x 4.1 x 5.0 cm SPLEEN: 9.1 cm length FINDINGS: LIVER: Normal echotexture without focal lesion or ductal dilatation. COMMON DUCT: There is slight dilatation of the distal common bile duct which may be related to post cholecystectom y reservoir phenomenon. Correlation with alkaline phosphatase and bilirubin levels is suggested. No i ntraluminal mass or stone visualized. GALLBLADDER: Status post cholecystectomy. PANCREAS: The visualized portions are within normal limits. RIGHT KIDNEY: No hydronephrosis, stone or mass. SPLEEN: The known low density lesion within the inferior aspect of the spleen is difficult to visualize sonog raphically due to shadowing bowel gas. CONCLUSION: Slight prominence of the distal common bile duct. Differential diagnosis includes reservoir phenomeno n status post cholecystectomy or biliary ductal dilatation. Correlation with alkaline phosphatase and bilirubin levels is suggested. Allan Perez MD on January 27, 2017 at 18:16 Board Certified Radiologist. This report was verified electronically. Allan Perez MD on January 29, 2017 at 18:04 Board Certified Radiologist. This report was verified electronically.
[2017-01-27 18:30] VITALS: BP 130/85; TEMP 97.8
[2017-01-27 21:08] VITALS: BP 139/92; PULSE 99; RESP 16; TEMP 98.2; O2SAT 99
[2017-01-27] MEDS: MORPHINE SULFATE 4 MG/ML INJ IV PUSH PRN (21:39)
[2017-01-27 23:26] VITALS: BP 120/77; PULSE 108; RESP 16; TEMP 98.1; O2SAT 99
[2017-01-28] MEDS: MORPHINE SULFATE 4 MG/ML INJ IV PUSH PRN ×3 (01:45→16:29)
[2017-01-28 03:07] VITALS: BP 124/76; PULSE 94; RESP 16; TEMP 97.8; O2SAT 99
[2017-01-28] MEDS: SODIUM CHLOR 0.9% 1000 ML INJ 1,000 ML IV SCH ×2 (04:00→15:47)
[2017-01-28 07:34] VITALS: BP 125/73; PULSE 104; RESP 18; TEMP 98.5; O2SAT 97
[2017-01-28 08:00] LABS: INDIRECT BILIRUBIN 0.5 MG/DL (0.0-0.8); TOTAL BILIRUBIN ADULT 1.4 MG/DL (0.2-1.0)
--- NOTE | 2017-01-28 09:32 | PD.CONS ---
HPI History of Present Illness This is a 41 year old female with hx gastritis, pancreatitis who presented to the ER for abd pain. THe pain started 3 days ago and is in the epigastric area , intermittent. No exacerbating or relieving factors. SHe is having n/v as well. No blood in emesis. NO loose stool, blood in stool, black tarry stools, fevers. She has had this pain before, about 1 month ago but it was not as bad. SHe took protonix at home and had some relief. She admits episode pancreatitis in 2006 and was told it was caused by salmonella. SHe had EGD 5 y ago in [place] and was told she had gastritis. Never had colonoscopy. SHe does not have a gallbladder. Denies ETOH. (Yuliana Healy) PFSH Past Medical History gastritis PUD pancreatitis Past Surgical History cholecystectomy neck surgery hysterectomy (Yuliana Healy) Coded Allergies: No Known Allergies (Unverified Allergy, Unknown, 01/27/17) Family History gastric cancer in mother. Social History denies smoking, drinking or illicit drug abuse. (Yuliana Healy) Review of Systems Constitutional: DENIES: Fever Eyes: DENIES: Photosensitivity Ears, nose, mouth, throat: DENIES: Hearing loss Respiratory: DENIES: Wheezing Cardiovascular: DENIES: Chest pain Gastrointestinal: COMPLAINS OF: Abdominal pain, Nausea, Vomiting, DENIES: Black stools, Bloody stools, Constipation, Diarrhea, Hematemesis Genitourinary: DENIES: Hematuria Musculoskeletal: DENIES: Joint Swelling Integumentary: DENIES: Jaundice Hematologic/lymphatic: DENIES: Bruising Neurologic: DENIES: Abnormal gait Psychiatric: DENIES: Confusion (Yuliana Healy) GI Exam Vitals I&O Vital Signs Date Time Temp Pulse Resp B/P (MAP) Pulse Ox O2 Delivery O2 Flow Rate FiO2 01/28/17 07:34 98.5 104 18 125/73 (90) 97 01/28/17 06:18 18 01/28/17 03:07 97.8 94 16 124/76 (92) 99 01/27/17 23:26 98.1 108 16 120/77 (91) 99 01/27/17 21:08 98.2 99 16 139/92 (108) 99 01/27/17 18:30 97.8 106 17 130/85 (100) 99 01/27/17 16:46 16 01/27/17 15:00 97.8 106 17 124/81 (95) 99 Room Air 01/27/17 13:52 16 01/27/17 13:25 18 98 Room Air 01/27/17 13:24 18 01/27/17 13:09 98.6 133 22 138/89 (105) 96 I/O 01/27/17 01/27/17 01/27/17 01/28/17 01/28/17 01/28/17 07:00 15:00 23:00 07:00 15:00 23:00 Intake Total 2000 ml 650 ml Balance 2000 ml 650 ml Intake Oral 150 ml IV Total 2000 ml 500 ml # Voids 1 # Bowel Movements 0 Imaging Last Impressions Abdomen/Pelvis CT 01/27/17 1330 Signed Impressions: Service Date/Time: Friday, January 27, 2017 16:18 - CONCLUSION: 1. I do not see a etiology for the abdominal pain 2. 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 Robbin Crane MD FACR Liver Ultrasound 01/27/17 0000 Signed Impressions: Service Date/Time: Friday, January 27, 2017 17:40 - CONCLUSION: Slight prominence of the distal common bile duct. Differential diagnosis includes reservoir phenomenon status post cholecystectomy or biliary ductal dilatation. Correlation with alkaline phosphatase and bilirubin levels is suggested. Allan Perez MD Laboratory Test 01/27/17 13:48 01/28/17 07:02 White Blood Count 11.3 TH/MM3 Red Blood Count 4.79 MIL/MM3 Hemoglobin 14.2 GM/DL Hematocrit 42.4 % Mean Corpuscular Volume 88.6 FL Mean Corpuscular Hemoglobin 29.7 PG Mean Corpuscular Hemoglobin Concent 33.6 % Red Cell Distribution Width 13.5 % Platelet Count 311 TH/MM3 Mean Platelet Volume 9.2 FL Neutrophils (%) (Auto) 85.6 % Lymphocytes (%) (Auto) 7.7 % Monocytes (%) (Auto) 6.3 % Eosinophils (%) (Auto) 0.1 % Basophils (%) (Auto) 0.3 % Neutrophils # (Auto) 9.7 TH/MM3 Lymphocytes # (Auto) 0.9 TH/MM3 Monocytes # (Auto) 0.7 TH/MM3 Eosinophils # (Auto) 0.0 TH/MM3 Basophils # (Auto) 0.0 TH/MM3 CBC Comment AUTO DIFF Differential Comment AUTO DIFF CONFIRMED Prothrombin Time 10.4 SEC Prothromb Time International Ratio 1.0 RATIO Activated Partial Thromboplast Time 19.6 SEC Blood Urea Nitrogen 7 MG/DL Creatinine 0.69 MG/DL Random Glucose 176 MG/DL Total Protein 8.6 GM/DL 7.4 GM/DL Albumin 4.2 GM/DL 3.7 GM/DL Calcium Level 9.3 MG/DL Alkaline Phosphatase 147 U/L 184 U/L Aspartate Amino Transf (AST/SGOT) 107 U/L 251 U/L Alanine Aminotransferase (ALT/SGPT) 534 U/L 636 U/L Total Bilirubin 0.6 MG/DL 1.4 MG/DL Sodium Level 135 MEQ/L Potassium Level 3.8 MEQ/L Chloride Level 104 MEQ/L Carbon Dioxide Level 22.8 MEQ/L Anion Gap 8 MEQ/L Estimat Glomerular Filtration Rate 94 ML/MIN Lipase 119 U/L Acetaminophen Level LESS THAN 2.0 MCG/ML Direct Bilirubin 0.9 MG/DL Indirect Bilirubin 0.5 MG/DL Physical Examination HEENT: PERRL; normocephalic; atraumatic; no jaundice. CHEST: CTA CARDIAC: RRR ABDOMEN: Soft, nondistended, RUQ and epigastric TTP; no hepatosplenomegaly; bowel sounds are present in all four quadrants. EXTREMITIES: No clubbing, cyanosis, or edema. SKIN: Normal; no rash; no jaundice. WHEEL MOLDER: No focal deficits; alert and oriented times three. (Yuliana Healy) Assessment and Plan Plan ASSESSMENT - RUQ and epigastric pain, n/v, elevated LFTs - unclear etiology, could be stone in CBD although this does not show on CT. US showed mild prominence CBD and pt has had cholecystectomy but LFTs have increased and could be obstructive pattern. hep panel pending. will get MRCP PLAN - MRCP - NPO until after MRCP - await hep panel - monitor labs - supportive care - further recs to follow based on results above This pt seen by myself and Dr Hoang and this note is written on his behalf (Yuliana Healy) Physician Comments Seen and examined with TAX [employer], MRCP ordered, if -ve will proceed with EGD. Thank you (Aiyana Hoang MD) Yuliana Healy Jan 28, 2017 09:32 Aiyana Hoang MD Jan 28, 2017 16:45
[2017-01-28 11:43] VITALS: BP 132/84; PULSE 107; RESP 18; TEMP 98.7; O2SAT 98
--- NOTE | 2017-01-28 14:46 | HHI.PR ---
Subjective Remarks The patient says the pain control is improved. She said that she has not thrown up recently. She denies diarrhea. She was awaiting the MRI. Objective Vitals Vital Signs Date Time Temp Pulse Resp B/P (MAP) Pulse Ox O2 Delivery O2 Flow Rate FiO2 01/28/17 11:43 98.7 107 18 132/84 (100) 98 01/28/17 07:34 98.5 104 18 125/73 (90) 97 01/28/17 06:18 18 01/28/17 03:07 97.8 94 16 124/76 (92) 99 01/27/17 23:26 98.1 108 16 120/77 (91) 99 01/27/17 21:08 98.2 99 16 139/92 (108) 99 01/27/17 18:30 97.8 106 17 130/85 (100) 99 01/27/17 16:46 16 01/27/17 15:00 97.8 106 17 124/81 (95) 99 Room Air I/O 01/27/17 01/27/17 01/27/17 01/28/17 01/28/17 01/28/17 07:00 15:00 23:00 07:00 15:00 23:00 Intake Total 2000 ml 650 ml Balance 2000 ml 650 ml Intake Oral 150 ml IV Total 2000 ml 500 ml # Voids 1 # Bowel Movements 0 Result Diagram: 01/27/17 1348 01/27/17 1348 Imaging Last Impressions Abdomen/Pelvis CT 01/27/17 1330 Signed Impressions: Service Date/Time: Friday, January 27, 2017 16:18 - CONCLUSION: 1. I do not see a etiology for the abdominal pain 2. 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 Robbin Crane MD FACR Liver Ultrasound 01/27/17 0000 Signed Impressions: Service Date/Time: Friday, January 27, 2017 17:40 - CONCLUSION: Slight prominence of the distal common bile duct. Differential diagnosis includes reservoir phenomenon status post cholecystectomy or biliary ductal dilatation. Correlation with alkaline phosphatase and bilirubin levels is suggested. Allan Perez MD Objective Remarks GENERAL: This is a well-nourished, well-developed patient, in no apparent distress. SKIN: No rashes, ecchymoses or lesions. Cool and dry. HEAD: Atraumatic. Normocephalic. No temporal or scalp tenderness. EYES: Pupils equal round and reactive. Extraocular motions intact. No scleral icterus. No injection or drainage. ENT: Nose without bleeding, purulent drainage or septal hematoma. Throat without erythema, tonsillar hypertrophy or exudate. Uvula midline. Airway patent. NECK: Trachea midline. No JVD or lymphadenopathy. Supple, nontender, no meningeal signs. CARDIOVASCULAR: Regular rate and rhythm without murmurs, gallops, or rubs. RESPIRATORY: Clear to auscultation. Breath sounds equal bilaterally. No wheezes , rales, or rhonchi. GASTROINTESTINAL: Abdomen soft, with epigastric tenderness, nondistended. No hepato-splenomegaly, or palpable masses. No guarding. MUSCULOSKELETAL: Extremities without clubbing, cyanosis, or edema. No joint tenderness, effusion, or edema noted. No calf tenderness. Negative Homans sign bilaterally. NEUROLOGICAL: Awake and alert. Cranial nerves II through XII intact. Motor and sensory grossly within normal limits. Five out of 5 muscle strength in all muscle groups. Normal speech. Medications and IVs Current Medications Medications (Trade) Dose Ordered Sig/Lisa Route Start Time Stop Time Status Last Admin (NS Flush) 2 ml UNSCH PRN IV FLUSH 01/27/17 13:15 01/27/17 13:47 (Protonix Inj) 40 mg Q24H IV PUSH 01/27/17 18:00 01/27/17 17:38 Sodium Chloride 1,000 ml @ 100 mls/hr Q10H IV 01/27/17 18:00 01/27/17 17:38 (Morphine Inj) 2 mg Q4HR PRN IV PUSH 01/27/17 17:30 01/28/17 06:01 (Zofran Inj) 4 mg Q8HR PRN IV PUSH 01/27/17 17:30 01/27/17 21:38 A/P Problem List: (1) Abdominal pain ICD Code: R10.9 - Unspecified abdominal pain Status: Acute (2) Transaminitis ICD Code: R74.0 - Nonspecific elevation of levels of transaminase and lactic acid dehydrogenase [LDH] Status: Acute Assessment and Plan Intractable abdominal pain with elevated LFT's GI consult appreciated. - keep NPO for now and continue with supportive care with IV fluid, antiemetics and pain control as needed. - start on IV Protonix. - check hepatitis panel. - will repeat LFT's tomorrow. - MRCP per GI. Tachycardia Likely s/t pain. - pain control and IVFs. Leukocytosis Possibly GI etiology. - ceftriaxone started. PPx: SCDs Problem Qualifiers (1) Abdominal pain: Qualified Codes: R10.13 - Epigastric pain Juan Francisco Whitt DO Jan 28, 2017 14:46
[2017-01-28] MEDS: cefTRIAXone INJ 1,000 MG in SODIUM CHLORIDE 0.9% INJ 100 ML IV SCH (15:46)
[2017-01-28 16:05] VITALS: BP 115/77; PULSE 111; RESP 18; TEMP 98.5; O2SAT 100
[2017-01-28] MEDS: PANTOPRAZOLE SODIUM 40 MG VIAL IV PUSH SCH (18:30)
[2017-01-28 21:28] VITALS: BP 126/64; PULSE 115; RESP 18; TEMP 100; O2SAT 97
--- NOTE | 2017-01-28 23:09 | RADRPT ---
EXAM DATE/TIME: 01/28/2017 19:41 [facility] COMPARISON: US ABDOMEN - LIVER, January 27, 2017, 17:40. CT ABDOMEN & PELVIS W CONTRAST, January 27, 2017, 16: 18. INDICATIONS : Abdominal pain and the epigastric region for 2 days. Elevated lab values. Abnormal abdomen ultrasound prominence of the distal common bile duct. MEDICAL HISTORY : Gastroesophageal reflux disease. Depression SURGICAL HISTORY : Hysterectomy. Cholecystectomy. Cervical ENCOUNTER: Subsequent ACUITY: 2 day PAIN SCORE: 10 / 10 LOCATION: Abdomen TECHNIQUE: Multiplanar, multisequence magnetic resonance imaging of the abdomen was performed. High-resolution 3D dataset was utilized to reconstruct maximum-intensity projection (MIP) images. FINDINGS: INTRAHEPATIC BILE DUCTS: Within normal limits. No significant anatomical variant is present. EXTRAHEPATIC BILE DUCTS: The common bile duct measures up to 1 cm. No stone or filling defect is identified. GALLBLADDER: Status post cholecystectomy. LIVER: Normal size and signal intensity. No concerning liver lesion is identified on this non-contrast exam. PANCREAS: The main pancreatic duct is normal in size. There is no significant anatomical variant. Signal inte nsity is within normal limits. No mass is visualized on this non-contrast exam. OTHER: The remaining visualized structures demonstrate no acute abnormality on this non-contrast exam. CONCLUSION: 1. Status post cholecystectomy. 2. The common bile duct measures up to 1 cm in diameter this can be a normal finding in a postsurgica l patient. There is no definite filling defect or stricture. There is no intrahepatic biliary ductal dilatation. Juan Francisco Ying MD on January 28, 2017 at 23:03 Board Certified Radiologist. This report was verified electronically.
[2017-01-29 00:24] VITALS: BP 142/74; PULSE 117; RESP 18; TEMP 98.8; O2SAT 98
[2017-01-29] MEDS: SODIUM CHLOR 0.9% 1000 ML INJ 1,000 ML IV SCH ×3 (00:36→20:05)
[2017-01-29] MEDS: MORPHINE SULFATE 4 MG/ML INJ IV PUSH PRN ×4 (00:38→14:58)
[2017-01-29 04:53] VITALS: BP 122/76; PULSE 115; RESP 18; TEMP 98.8; O2SAT 98
[2017-01-29 07:40] VITALS: BP 125/82; PULSE 116; RESP 21; TEMP 98.8; O2SAT 97
[2017-01-29 07:41] LABS: HEMATOCRIT 38.2 % (35.0-46.0); MEAN CELL VOLUME 89.1 FL (80.0-100.0); MEAN CORPUSCULAR HEMOGLOBIN 30.8 PG (27.0-34.0); MEAN CORPUSCULAR HGB CONC 34.5 % (32.0-36.0); PLATELET COUNT 211 TH/MM3 (150-450); RED BLOOD COUNT 4.29 MIL/MM3 (4.00-5.30); REVIEW FLAG FINAL; WHITE BLOOD COUNT 9.1 TH/MM3 (4.0-11.0)
[2017-01-29 08:14] LABS: BICARBONATE 24.7 MEQ/L (21.0-32.0); INDIRECT BILIRUBIN 0.5 MG/DL (0.0-0.8); MAGNESIUM 1.8 MG/DL (1.5-2.5); TOTAL BILIRUBIN ADULT 0.9 MG/DL (0.2-1.0)
--- NOTE | 2017-01-29 11:08 | HHI.GIFU ---
Subjective Remarks Pt still having epigastric pain although there is mild improvement. Apparently has chronic elevation LFTs, she says she has been told this before. Has taken amitriptyline and temazepam but not in the last month. Only regular medication she takes is zantac. (Yuliana Healy) Objective Vitals I&O Vital Signs Date Time Temp Pulse Resp B/P (MAP) Pulse Ox O2 Delivery O2 Flow Rate FiO2 01/29/17 07:40 98.8 116 21 125/82 (96) 97 01/29/17 04:53 98.8 115 18 122/76 (91) 98 01/29/17 00:44 18 01/29/17 00:24 98.8 117 18 142/74 (96) 98 01/28/17 21:28 100.0 115 18 126/64 (84) 97 01/28/17 16:05 98.5 111 18 115/77 (90) 100 01/28/17 11:43 98.7 107 18 132/84 (100) 98 I/O 01/28/17 01/28/17 01/28/17 01/29/17 01/29/17 01/29/17 07:00 15:00 23:00 07:00 15:00 23:00 Intake Total 650 ml 0 ml Balance 650 ml 0 ml Intake Oral 150 ml 0 ml IV Total 500 ml # Voids 0 Laboratory Laboratory Tests Test 01/29/17 06:45 White Blood Count 9.1 Red Blood Count 4.29 Hemoglobin 13.2 Hematocrit 38.2 Mean Corpuscular Volume 89.1 Mean Corpuscular Hemoglobin 30.8 Mean Corpuscular Hemoglobin Concent 34.5 Red Cell Distribution Width 14.0 Platelet Count 211 Mean Platelet Volume 9.3 Blood Urea Nitrogen 6 Creatinine 0.54 Random Glucose 89 Total Protein 8.0 Albumin 3.7 Calcium Level 8.6 Magnesium Level 1.8 Alkaline Phosphatase 231 Aspartate Amino Transf (AST/SGOT) 220 Alanine Aminotransferase (ALT/SGPT) 599 Total Bilirubin 0.9 Direct Bilirubin 0.4 Sodium Level 136 Potassium Level 3.0 Chloride Level 100 Carbon Dioxide Level 24.7 Anion Gap 11 Estimat Glomerular Filtration Rate 124 Indirect Bilirubin 0.5 Imaging Last Impressions Cholangiopancreatography MRI 01/28/17 0000 Signed Impressions: Service Date/Time: Saturday, January 28, 2017 19:41 - CONCLUSION: 1. Status post cholecystectomy. 2. The common bile duct measures up to 1 cm in diameter this can be a normal finding in a postsurgical patient. There is no definite filling defect or stricture. There is no intrahepatic biliary ductal dilatation. Juan Francisco Ying MD Abdomen/Pelvis CT 01/27/17 1330 Signed Impressions: Service Date/Time: Friday, January 27, 2017 16:18 - CONCLUSION: 1. I do not see a etiology for the abdominal pain 2. 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 Robbin Crane MD FACR Liver Ultrasound 01/27/17 0000 Signed Impressions: Service Date/Time: Friday, January 27, 2017 17:40 - CONCLUSION: Slight prominence of the distal common bile duct. Differential diagnosis includes reservoir phenomenon status post cholecystectomy or biliary ductal dilatation. Correlation with alkaline phosphatase and bilirubin levels is suggested. Allan Perez MD Physical Exam HEENT: PERRL; normocephalic; atraumatic; no jaundice. CHEST: CTA CARDIAC: RRR ABDOMEN: Soft, nondistended,epigastric TTP; no hepatosplenomegaly; bowel sounds are present in all four quadrants. EXTREMITIES: No clubbing, cyanosis, or edema. SKIN: Normal; no rash; no jaundice. KITCHEN ASSISTANT: No focal deficits; alert and oriented times three. (Yuliana Healy) Assessment and Plan Plan ASSESSMENT - RUQ and epigastric pain, n/v, elevated LFTs - unclear etiology, could be stone in CBD although this does not show on CT. US showed mild prominence CBD and pt has had cholecystectomy. hep panel neg. MRCP neg. denies herbs or supplements, regular medication she takes is zantac. will get rest of liver w/u, EGD tomorrow r/o ulcer, gastritis, h pylori PLAN - liver w/u - EGD tomorrow - obtain consent - NPO after midnight - monitor labs - supportive care - further recs to follow based on results above This pt seen by myself and Dr Hoang and this note is written on his behalf (Yuliana Healy) Physician Comments Seen and examined with chrissy VALLES for elevated lfts. Egd tomorrow. (Aiyana Hoang MD) Yuliana Healy Jan 29, 2017 11:08 Aiyana Hoang MD Jan 29, 2017 13:40
[2017-01-29 11:38] VITALS: BP 122/84; PULSE 112; RESP 20; TEMP 98.6; O2SAT 98
[2017-01-29] MEDS: cefTRIAXone INJ 1,000 MG in SODIUM CHLORIDE 0.9% INJ 100 ML IV SCH (15:00)
[2017-01-29] MEDS: POTASSIUM CHLORIDE 25 MEQ EFFERVESCENT TAB PO SCH ×2 (15:05→20:06)
--- NOTE | 2017-01-29 15:14 | HHI.PR ---
Subjective Remarks The patient was looking forward to having a soft food diet. She said that her pain was controlled. She knew she had to do the procedure tomorrow. Discussed with nursing. Objective Vitals Vital Signs Date Time Temp Pulse Resp B/P (MAP) Pulse Ox O2 Delivery O2 Flow Rate FiO2 01/29/17 11:38 98.6 112 20 122/84 (97) 98 01/29/17 07:40 98.8 116 21 125/82 (96) 97 01/29/17 04:53 98.8 115 18 122/76 (91) 98 01/29/17 00:44 18 01/29/17 00:24 98.8 117 18 142/74 (96) 98 01/28/17 21:28 100.0 115 18 126/64 (84) 97 01/28/17 16:05 98.5 111 18 115/77 (90) 100 I/O 01/28/17 01/28/17 01/28/17 01/29/17 01/29/17 01/29/17 07:00 15:00 23:00 07:00 15:00 23:00 Intake Total 650 ml 0 ml Balance 650 ml 0 ml Intake Oral 150 ml 0 ml IV Total 500 ml # Voids 0 Result Diagram: 01/29/17 0645 01/29/17 0645 Imaging Last Impressions Cholangiopancreatography MRI 01/28/17 0000 Signed Impressions: Service Date/Time: Saturday, January 28, 2017 19:41 - CONCLUSION: 1. Status post cholecystectomy. 2. The common bile duct measures up to 1 cm in diameter this can be a normal finding in a postsurgical patient. There is no definite filling defect or stricture. There is no intrahepatic biliary ductal dilatation. Juan Francisco Ying MD Abdomen/Pelvis CT 01/27/17 1330 Signed Impressions: Service Date/Time: Friday, January 27, 2017 16:18 - CONCLUSION: 1. I do not see a etiology for the abdominal pain 2. 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 Robbin Crane MD FACR Liver Ultrasound 01/27/17 0000 Signed Impressions: Service Date/Time: Friday, January 27, 2017 17:40 - CONCLUSION: Slight prominence of the distal common bile duct. Differential diagnosis includes reservoir phenomenon status post cholecystectomy or biliary ductal dilatation. Correlation with alkaline phosphatase and bilirubin levels is suggested. Allan Perez MD Objective Remarks GENERAL: This is a well-nourished, well-developed patient, in no apparent distress. SKIN: No rashes, ecchymoses or lesions. Cool and dry. HEAD: Atraumatic. Normocephalic. No temporal or scalp tenderness. EYES: Pupils equal round and reactive. Extraocular motions intact. No scleral icterus. No injection or drainage. ENT: Nose without bleeding, purulent drainage or septal hematoma. Throat without erythema, tonsillar hypertrophy or exudate. Uvula midline. Airway patent. NECK: Trachea midline. No JVD or lymphadenopathy. Supple, nontender, no meningeal signs. CARDIOVASCULAR: Regular rate and rhythm without murmurs, gallops, or rubs. RESPIRATORY: Clear to auscultation. Breath sounds equal bilaterally. No wheezes , rales, or rhonchi. GASTROINTESTINAL: Abdomen soft, with epigastric tenderness, nondistended. No hepato-splenomegaly, or palpable masses. No guarding. MUSCULOSKELETAL: Extremities without clubbing, cyanosis, or edema. No joint tenderness, effusion, or edema noted. NEUROLOGICAL: Awake and alert. Cranial nerves II through XII intact. Motor and sensory grossly within normal limits. Five out of 5 muscle strength in all muscle groups. Normal speech. PSYCH: Mood and affect appropriate. Medications and IVs Current Medications Medications (Trade) Dose Ordered Sig/Lisa Route Start Time Stop Time Status Last Admin (NS Flush) 2 ml UNSCH PRN IV FLUSH 01/27/17 13:15 01/27/17 13:47 (Protonix Inj) 40 mg Q24H IV PUSH 01/27/17 18:00 01/28/17 18:30 Sodium Chloride 1,000 ml @ 100 mls/hr Q10H IV 01/27/17 18:00 01/29/17 10:00 (Morphine Inj) 2 mg Q4HR PRN IV PUSH 01/27/17 17:30 01/29/17 14:58 (Zofran Inj) 4 mg Q8HR PRN IV PUSH 01/27/17 17:30 01/27/17 21:38 Ceftriaxone Sodium 1000 mg/ Sodium Chloride 100 ml @ 200 mls/hr Q24H IV 01/28/17 15:00 01/29/17 15:00 (K-Lyte Cl Eff) 50 meq Q5H PO 01/29/17 15:00 01/29/17 20:01 01/29/17 15:05 A/P Problem List: (1) Abdominal pain ICD Code: R10.9 - Unspecified abdominal pain Status: Acute (2) Transaminitis ICD Code: R74.0 - Nonspecific elevation of levels of transaminase and lactic acid dehydrogenase [LDH] Status: Acute Assessment and Plan Intractable abdominal pain with elevated LFT's GI consult appreciated. MRCP without any acute finding. Hepatitis profile negative. - supportive care including IVFs and pain control. - start on IV Protonix. - will repeat LFT's tomorrow. - EGD in AM per GI. Tachycardia Likely s/t pain. - pain control and IVFs. Hypokalemia S/t decreased PO intake. - replete and monitor. PPx: SCDs Discharge Planning Awaiting EGD Problem Qualifiers (1) Abdominal pain: Qualified Codes: R10.13 - Epigastric pain Juan Francisco Whitt DO Jan 29, 2017 15:14
[2017-01-29 15:21] VITALS: BP 140/82; PULSE 102; RESP 20; TEMP 98.9; O2SAT 98
[2017-01-29] MEDS: PANTOPRAZOLE SODIUM 40 MG VIAL IV PUSH SCH (17:45)
[2017-01-29] MEDS ORDERED: POVIDONE IODINE 5% (ANTISEPSIS KIT) 4 APPLICATIONS EACH NARE PRN (19:30)
[2017-01-29] MEDS ORDERED: LACTATED RINGER'S 1000 ML IV PRN (19:30)
[2017-01-29] MEDS ORDERED: CHLORHEXIDINE GLUCONATE 2 % 1 PACK (2 CLOTHS) TOPICAL PRN (19:30)
[2017-01-29] MEDS ORDERED: METOPROLOL TARTRATE 25 MG TAB PO PRN (19:30)
[2017-01-29] MEDS ORDERED: SODIUM CHLORID 0.9% 500 ML IV PRN (19:30)
[2017-01-29 20:14] VITALS: BP 121/72; PULSE 115; RESP 18; TEMP 99.5; O2SAT 96
[2017-01-30 00:16] VITALS: BP 123/68; PULSE 119; RESP 18; TEMP 99.3; O2SAT 98
[2017-01-30 04:16] VITALS: BP 124/73; PULSE 118; RESP 18; TEMP 99.6; O2SAT 98
[2017-01-30] MEDS: SODIUM CHLOR 0.9% 1000 ML INJ 1,000 ML IV SCH ×2 (05:32→16:00)
[2017-01-30 06:40] LABS: ANION GAP 10 MEQ/L (5-15); AST (GOT) 130 U/L (15-37); BICARBONATE 26.3 MEQ/L (21.0-32.0); BLOOD UREA NITROGEN 5 MG/DL (7-18); CHLORIDE 101 MEQ/L (98-107); GLOMERULAR FILTRATION RATE 146 ML/MIN (>89); POTASSIUM 3.2 MEQ/L (3.5-5.1); SODIUM (NA) 137 MEQ/L (136-145)
[2017-01-30 06:42] LABS: ALT (GPT) 463 U/L (10-53)
[2017-01-30 06:44] LABS: ALKALINE PHOSPHATASE 182 U/L (45-117); FERRITIN 157 NG/ML (8-252); TOTAL BILIRUBIN ADULT 0.6 MG/DL (0.2-1.0); TRANSFERRIN IRON PROFILE 280 MG/DL (200-360)
[2017-01-30 08:00] VITALS: BP 132/75; PULSE 87; RESP 16; TEMP 99.1; O2SAT 99
[2017-01-30] MEDS ORDERED: LIDOCAINE HCL 1% PF 5 ML SYRINGE OTHER ONE (12:00)
[2017-01-30] MEDS ORDERED: PROPOFOL 200 MG/20 ML AMP IV ONE (12:00)
--- NOTE | 2017-01-30 12:38 | GIPROC ---
[facility] [address] [facility]. [facility] [place], [address] EGD PROCEDURE REPORT EXAM DATE: 01/30/2017 PATIENT NAME: Maranda Stephens MR #: [id number] BIRTHDATE: 1975 ATTENDING: Aiyana Hoang MD ORDER #: [id number] BEZEL CUTTER: Betzy Baldwin and Albert Cortes STATUS: inpatient INDICATIONS: The patient is a 41 yr old female here for an EGD due to history of esophageal reflux and epigastric abdominal pain PROCEDURE PERFORMED: EGD w/ biopsy MEDICATIONS: Per Anesthesia and None. TOPICAL ANESTHETIC: CONSENT: The patient understands the risks and benefits of the procedure and understands that these risks include, but are not limited to: sedation, allergic reaction, infection, perforation and/or bleeding. Alternative means of evaluation and treatment include, among others: physical exam, x-rays, and/or surgical intervention. The patient elects to proceed with this endoscopic procedure. medical equipment was checked for proper function. Hand hygiene and appropriate measures for infection prevention was taken. After the risks, benefits and alternatives of the procedure were thoroughly explained, Informed consent was verified, confirmed and timeout was successfully executed by the treatment team. The patient was anesthetized with topical anesthesia and the [id number] (Pedi C) endoscope was introduced through the mouth and advanced to the second portion of the duodenum. Retroflexed views revealed no abnormalities The gastroscope was then slowly withdrawn and removed. ESOPHAGUS: The mucosa of the esophagus appeared normal. STOMACH: There was erythematous moderate gastritis in the gastric antrum. A biopsy was performed using cold forceps. Sample sent for histology. DUODENUM: The duodenal mucosa appeared normal in the bulb and second portion of the duodenum. ADVERSE EVENTS: There were no complications. IMPRESSIONS: 1. The esophagus appeared normal 2. There was erythematous gastritis in the gastric antrum; biopsy was performed 3. Normal duodenal mucosa in the bulb and second portion of the duodenum 4. Retroflexed views revealed no abnormalities RECOMMENDATIONS: 1. Await biopsy results. Biopsy results will not be ready for 7-10 days. If you don't hear from us in two weeks, call our office for biopsy results. 2. Anti-reflux regimen 3. Continue PPI 4. Avoid NSAIDS PATIENT CONDITION: stable DISPOSITION: Inpatient REPEAT EXAM: Return 3 years EGD pending biopsy results Aiyana Hoang MD eSigned: Aiyana Hoang MD 01/30/2017 12:38 PM cc: PATIENT NAME: Maranda Stephens MR#: [id number]
[2017-01-30 13:30] VITALS: BP 123/84; PULSE 101; RESP 18; TEMP 99.1; O2SAT 100
[2017-01-30] MEDS: cefTRIAXone INJ 1,000 MG in SODIUM CHLORIDE 0.9% INJ 100 ML IV SCH (15:00)
[2017-01-30] MEDS ORDERED: OXYC1CAP PO (15:37)
[2017-01-30] MEDS ORDERED: POTA-163 PO (15:37)
[2017-01-30] MEDS ORDERED: PANT40TA3 PO (15:37)
--- NOTE | 2017-01-30 15:42 | HHI.DCPOC ---
Discharge Care Plan Diagnosis: (1) Abdominal pain (2) Transaminitis (3) Tachycardia Goals to Promote Your Health * To prevent worsening of your condition and complications * To maintain your health at the optimal level Directions to Meet Your Goals Take your medications as prescribed Follow your dietary instruction Follow activity as directed Keep your appointments as scheduled Take your immunizations and boosters as scheduled If your symptoms worsen call your PCP, if no PCP go to Urgent Care Center or Emergency Room Smoking is Dangerous to Your Health. Avoid second hand smoke Call the 24-hour hour crisis hotline for domestic abuse at Juan Francisco Whitt DO Jan 30, 2017 15:42
--- NOTE | 2017-01-30 15:47 | HHI.DS ---
Discharge Summary Admission Date Jan 27, 2017 at 16:55 Discharge Date: Jan 30, 2017 Admitting Diagnosis Intractable abdominal pain, transaminitis (1) Abdominal pain ICD Code: R10.9 - Unspecified abdominal pain Diagnosis: Principal Status: Acute (2) Transaminitis ICD Code: R74.0 - Nonspecific elevation of levels of transaminase and lactic acid dehydrogenase [LDH] Diagnosis: Principal Status: Acute (3) Tachycardia ICD Code: R00.0 - Tachycardia, unspecified Procedures EGD 01/30 Brief History - From Admission patient is a 41 y/o female with history of gastritis and pancreatitis who presented to ER with abdominal pain. she says that the pain started two days ago. pain is epigastric with no radiation. pain was initially moderate in intensity but it gradually got worse to the extent that she decided to come to ER. she says that she tried some zantac with no relief. she had some nausea and emesis earlier. she denies any change in bowel movement. she had some chills and questionable fever at home. abdominal pain didn't improve despite the IV Morphine that she received in ER earlier.she says that she took 2-3 tylenol for headache the past couple of days.she had an endoscopy about three years ago and she was found to have gastritis at the time. CBC/BMP: 01/29/17 0645 01/30/17 0518 Significant Findings Laboratory Tests Test 01/28/17 07:02 01/29/17 06:45 01/30/17 05:18 Total Bilirubin 1.4 MG/DL (0.2-1.0) Direct Bilirubin 0.9 MG/DL (0.0-0.2) 0.4 MG/DL (0.0-0.2) Aspartate Amino Transf (AST/SGOT) 251 U/L (15-37) 220 U/L (15-37) 130 U/L (15-37) Alanine Aminotransferase (ALT/SGPT) 636 U/L (10-53) 599 U/L (10-53) 463 U/L (10-53) Alkaline Phosphatase 184 U/L (45-117) 231 U/L (45-117) 182 U/L (45-117) Blood Urea Nitrogen 6 MG/DL (7-18) 5 MG/DL (7-18) Potassium Level 3.0 MEQ/L (3.5-5.1) 3.2 MEQ/L (3.5-5.1) Creatinine 0.47 MG/DL (0.50-1.00) Calcium Level 8.2 MG/DL (8.5-10.1) Iron Level 44 MCG/DL (50-170) Percent Iron Saturation 11.2 % (20-50) Imaging Last Impressions Cholangiopancreatography MRI 01/28/17 0000 Signed Impressions: Service Date/Time: Saturday, January 28, 2017 19:41 - CONCLUSION: 1. Status post cholecystectomy. 2. The common bile duct measures up to 1 cm in diameter this can be a normal finding in a postsurgical patient. There is no definite filling defect or stricture. There is no intrahepatic biliary ductal dilatation. Juan Francisco Ying MD Abdomen/Pelvis CT 01/27/17 1330 Signed Impressions: Service Date/Time: Friday, January 27, 2017 16:18 - CONCLUSION: 1. I do not see a etiology for the abdominal pain 2. 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 Robbin Crane MD FACR Liver Ultrasound 01/27/17 0000 Signed Impressions: Service Date/Time: Friday, January 27, 2017 17:40 - CONCLUSION: Slight prominence of the distal common bile duct. Differential diagnosis includes reservoir phenomenon status post cholecystectomy or biliary ductal dilatation. Correlation with alkaline phosphatase and bilirubin levels is suggested. Allan Perez MD PE at Discharge GENERAL: This is a well-nourished, well-developed patient, in no apparent distress. SKIN: No rashes, ecchymoses or lesions. Cool and dry. HEAD: Atraumatic. Normocephalic. No temporal or scalp tenderness. EYES: Pupils equal round and reactive. Extraocular motions intact. No scleral icterus. No injection or drainage. ENT: Nose without bleeding, purulent drainage or septal hematoma. Throat without erythema, tonsillar hypertrophy or exudate. Uvula midline. Airway patent. NECK: Trachea midline. No JVD or lymphadenopathy. Supple, nontender, no meningeal signs. CARDIOVASCULAR: Regular rate and rhythm without murmurs, gallops, or rubs. RESPIRATORY: Clear to auscultation. Breath sounds equal bilaterally. No wheezes , rales, or rhonchi. GASTROINTESTINAL: Abdomen soft, with epigastric tenderness, nondistended. No hepato-splenomegaly, or palpable masses. No guarding. MUSCULOSKELETAL: Extremities without clubbing, cyanosis, or edema. No joint tenderness, effusion, or edema noted. NEUROLOGICAL: Awake and alert. Cranial nerves II through XII intact. Motor and sensory grossly within normal limits. Five out of 5 muscle strength in all muscle groups. Normal speech. PSYCH: Mood and affect appropriate. Pt update on day of discharge The patient feels a lot better and would like to go home. She says she still has a little bit of pain in the epigastric area. She tolerated a diet. She has been ambulating. She had a bowel movement. Discussed with gastroenterology. Hospital Course Intractable abdominal pain with elevated LFT's GI was consulted. MRCP without any acute finding. Hepatitis profile negative. She received supportive care including IVFs and pain control. We started the pt on IV Protonix. EGD 01/30 with gastritis. LFTs improved. The pt was tolerating a diet and her pain got better. She will follow up with GI as an outpt. She will continue a PPI. She will have a CMP repeated in 3-5 days. Tachycardia The pt received pain control and IVFs. She had an EKG checked prior to discharge which showed sinus tachycardia. TSH was within normal limits. She will follow up with her PCP. Hypokalemia The pt received KCl supplementation. She will be discharged on KCl and will have a CMP checked in 3-5 days. Pt Condition on Discharge: Stable Discharge Disposition: Discharge Home Discharge Time: > 30 minutes Discharge Instructions DIET: Follow Instructions for: As Tolerated, No Restrictions Activities you can perform: Regular-No Restrictions Follow up Referrals: Gastroenterology - 1 Week with Aiyana Hoang MD PCP Follow-up - 1 Week New Orders: COMP MET PROF (CMP) - 3-5 Days New Medications: Oxycodone (Oxycodone) 5 Mg Cap 5 MG PO Q6H PRN for PAIN, #10 CAP 0 Refills Pantoprazole (Pantoprazole) 40 Mg Tab 40 MG PO DAILY for Reflux, #30 TAB 0 Refills Potassium Chloride ER (Potassium Chloride ER) 20 Meq Tab 20 MEQ PO DAILY for Electrolyte Replacement, #14 TAB 0 Refills Discontinued Medications: Ranitidine (Zantac) 300 Mg Tab 300 MG PO DAILY, TAB 0 Refills Juan Francisco Whitt DO Jan 30, 2017 15:47
[2017-01-30 16:00] VITALS: BP 122/76; PULSE 102; RESP 18; TEMP 99.2; O2SAT 98
[2017-01-30] MEDS ORDERED: POTASSIUM CHLORIDE 25 MEQ EFFERVESCENT TAB PO ONE (16:00)
[2017-01-30] MEDS: PANTOPRAZOLE SODIUM 40 MG VIAL IV PUSH SCH (18:00)
--- NOTE | 2017-01-31 13:16 | EKG ---
Date Performed: 01/30/2017 Time Performed: 16:28:16 PTAGE: 41 years EKG: SINUS TACHYCARDIA WITH SHORT CO INTERVAL ABNORMAL RHYTHM ECG NO PREVIOUS TRACING DOCTOR: Karl Bird Interpretating Date/Time 01/31/2017 13:14:28
[2017-02-03 23:53] LABS: MITOCHONDRIAL ABS LESS THAN 20.0 U (<=20.0)
== END 2017-01-30 19:56 | disposition home or self-care (01) ==
LOC: NEPD 13:06 → NEDA 16:55 → NEPHCDU 18:51
PROVIDERS: ADMIT Internal Medicine; ATTEND Hospitalist
DX: K29.50 Unspecified chronic gastritis without bleeding (principal); R10.9 Unspecified abdominal pain; R74.0 Nonspecific elevation of levels of transaminase and lactic acid dehydrogenase [LDH]; R00.0 Tachycardia, unspecified; E87.6 Hypokalemia; R93.5 Abnormal findings on diagnostic imaging of other abdominal regions, including retroperitoneum; R94.5 Abnormal results of liver function studies; Z87.11 Personal history of peptic ulcer disease; Z80.0 Family history of malignant neoplasm of digestive organs; Z79.899 Other long term (current) drug therapy
CPT/HCPCS: 00740; 43239; 74177; 74181; 76377; 76705; 80048; 80053; 80074; 80076; 80307; 82103; 82105; 82390; 82728; 83520; 83540; 83550; 83690; 83735; 84443; 85025; 85027; 85610; 85730; 86038; 86255; 88305; 88312; 93005; 96361; 96365; 96375; 96376; 99285; C9113; G0378; J0696; J2270; J2405; J7030; J7120; Q9967

== ENCOUNTER 2017-02-26 19:50 | Emergency (ER) | payer MEDICAID ==
[~2017-02-26] VITALS: Ht 154.9 cm; Wt 63.0 kg
[~2017-02-26 19:50] MED LIST changes: -AMIT150T PO; -BUTA1CAP PO; -DIPH25CA PO; -FAMO1TAB37 PO; +OXYC1CAP PO; +PANT40TA3 PO; +POTA-163 PO; -PRED20 PO; -ZANT300T PO; -ZOFR4TAB3 SL; -ZYRTEC PO
[2017-02-26 19:51] VITALS: BP 140/89; PULSE 81; RESP 16; TEMP 99; O2SAT 100
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
[2017-02-26] MEDS ORDERED: diphenhydrAMINE HCL 50 MG/ML VIAL IV PUSH ONE (21:15)
[2017-02-26] MEDS ORDERED: SODIUM CHLOR 0.9% 1000 ML INJ 1,000 ML IV ONE (21:15)
[2017-02-26] MEDS ORDERED: KETOROLAC TROMETHAMINE 30 MG/ML (IVP) VIAL IV PUSH ONE (21:15)
[2017-02-26] MEDS ORDERED: METOCLOPRAMIDE HCL 10 MG/2 ML VIAL IV PUSH ONE (21:15)
[2017-02-26 22:09] VITALS: RESP 16
[2017-02-26] MEDS ORDERED: DEXAMETHASONE SOD PHOS 4 MG/ML VIAL IV PUSH ONE (22:15)
[2017-02-26] MEDS ORDERED: BUTA1CAP PO (22:38)
== END 2017-02-26 23:01 | disposition home or self-care (01) ==
LOC: NEPD 19:50
DX: G43.909 Migraine, unspecified, not intractable, without status migrainosus (principal); M54.2 Cervicalgia; G89.29 Other chronic pain; R11.0 Nausea; F41.9 Anxiety disorder, unspecified; K21.9 Gastro-esophageal reflux disease without esophagitis; Z79.899 Other long term (current) drug therapy
CPT/HCPCS: 96374; 96375; 99284; J1100; J1200; J1885; J2765; J7030

== ENCOUNTER 2017-03-14 15:23 | Emergency (ER) | payer MEDICAID ==
[~2017-03-14] VITALS: Ht 154.9 cm; Wt 65.0 kg
[~2017-03-14 15:23] MED LIST changes: +BUTA1CAP PO
[2017-03-14 15:24] VITALS: BP 160/91; PULSE 95; RESP 16; TEMP 98.7; O2SAT 100
[2017-03-14] MEDS ORDERED: PROCHLORPERAZINE INJ 10 MG/2 ML VIAL IV PUSH ONE (15:45)
[2017-03-14] MEDS ORDERED: diphenhydrAMINE HCL 50 MG/ML VIAL IV PUSH ONE (15:45)
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
== END 2017-03-14 16:16 | disposition home or self-care (01) ==
LOC: NEPD 15:23
DX: G44.209 Tension-type headache, unspecified, not intractable (principal); F41.9 Anxiety disorder, unspecified; K21.9 Gastro-esophageal reflux disease without esophagitis
CPT/HCPCS: 96374; 96375; 99284; J0780; J1200

== ENCOUNTER 2017-05-03 17:24 | Emergency (ER) | payer SELFPAY ==
[~2017-05-03] VITALS: Ht 154.9 cm; Wt 70.0 kg
[~2017-05-03 17:24] MED LIST changes: -OXYC1CAP PO; -POTA-163 PO
[2017-05-03 17:28] VITALS: BP 156/70; PULSE 101; RESP 19; TEMP 98.7; O2SAT 99
== END 2017-05-03 18:15 | disposition left against medical advice (07) ==
LOC: NED 17:24
DX: Z04.3 Encounter for examination and observation following other accident (principal)
CPT/HCPCS: 99281